=== PATIENT | female | born 1995 | race American Indian/Alaskan Native ===

== ENCOUNTER 2020-02-19 19:22 | Emergency (ER) | payer SELFPAY ==
--- NOTE | 2020-02-19 19:47 | Emergency Department Report ---
Blank Doc - Documentation Documentation: 24-year-old female that presents with abdominal pain with headache. This initial assessment/diagnostic orders/clinical plan/treatment(s) is/are subject to change based on patient's health status, clinical progression and re- assessment by fellow clinical providers in the ED. Further treatment and workup at subsequent clinical providers discretion. Patient/guardians urged not to elope from the ED as their condition may be serious if not clinically assessed and managed. Initial orders include: 1- Patient sent to [facility] for further evaluation and treatment 2- labs 3- UA
[2020-02-19 19:53] VITALS: BP 134/88
[2020-02-19 20:09] LABS: Basophils % (Auto) 0.6 % (0.0-1.8); Eosinophils # (Auto) 0.1 K/mm3 (0.0-0.4); Eosinophils % (Auto) 2.4 % (0.0-4.3); Hematocrit 26.5 % (30.3-42.9); Hemoglobin 8.1 gm/dl (10.1-14.3); Lymphocytes # (Auto) 1.9 K/mm3 (1.2-5.4); Lymphocytes % (Auto) 46.5 % (13.4-35.0); Mean Corpuscular HGB Conc 31 % (30-34); Monocytes # (Auto) 0.5 K/mm3 (0.0-0.8); Monocytes % (Auto) 11.8 % (0.0-7.3); Platelet Count 418 K/mm3 (140-440); Red Blood Count 4.43 M/mm3 (3.65-5.03); Red Cell Distribution Width 18.2 % (13.2-15.2)
[2020-02-19 20:14] LABS: Mean Corpuscular Volume 60 fl (79-97)
[2020-02-19 20:31] LABS: Alanine Aminotransferase 7 units/L (7-56); Albumin 4.6 g/dL (3.9-5); BUN/Creatinine Ratio 13; Blood Urea Nitrogen 12 mg/dL (7-17); Calcium 9.4 mg/dL (8.4-10.2); Hemolysis Index 2
[2020-02-19 22:53] LABS: Bilirubin,Urine NEG (Negative); Blood,Urine MOD (Negative); Color,Urine Yellow (Yellow); Mucus,Urine FEW /HPF; Protein,Urine <15 mg/dL mg/dL (Negative)
--- NOTE | 2020-02-20 00:11 | Emergency Department Report ---
ED General Adult HPI - General Chief complaint: Abdominal Pain Stated complaint: ABD PAIN, LIGHT HEADED Time Seen by Provider: 02/19/20 19:46 Source: patient Mode of arrival: Ambulatory Limitations: No Limitations - History of Present Illness Initial comments: This is a 24-year-old healthy female who presents the ED complaining of fever that occurred 2 days ago for 2 days and resolved today. Patient states that today she began to experience some mid abdominal pain. Patient states that she was in contact with her grandmother who is currently hospitalized at [facility] and has been tested positive for the cold with virus. Patient denies any shortness of breath, vomiting, nausea, coughing, chest pain, diarrhea or any other symptoms. - Related Data Allergies Allergy/AdvReac Type Severity Reaction Status Date / Time No Known Allergies Allergy Unverified 02/19/20 19:27 ED Review of Systems ROS: Stated complaint: ABD PAIN, LIGHT HEADED Other details as noted in HPI Comment: All other systems reviewed and negative ED Past Medical Hx - Past Medical History Previous Medical History?: No - Social History Smoking Status: Never Smoker Substance Use Type: None ED Physical Exam - General Limitations: No Limitations General appearance: alert, in no apparent distress - Head Head exam: Present: atraumatic, normocephalic - Eye Eye exam: Present: normal appearance - ENT ENT exam: Present: mucous membranes moist - Neck Neck exam: Present: normal inspection - Respiratory Respiratory exam: Present: normal lung sounds bilaterally. Absent: respiratory distress - Cardiovascular Cardiovascular Exam: Present: regular rate, normal rhythm. Absent: systolic murmur, diastolic murmur, rubs, gallop - GI/Abdominal GI/Abdominal exam: Present: soft, normal bowel sounds. Absent: distended, tenderness, mass - Extremities Exam Extremities exam: Present: normal inspection - Back Exam Back exam: Present: normal inspection - Neurological Exam Neurological exam: Present: alert, oriented X3 - Psychiatric Psychiatric exam: Present: normal affect, normal mood - Skin Skin exam: Present: warm, dry, intact, normal color. Absent: rash ED Course Vital Signs 02/19/20 02/20/20 19:47 00:15 Temperature 99.4 F Pulse Rate 79 76 Respiratory 16 16 Rate Blood Pressure 134/88 O2 Sat by Pulse 100 100 Oximetry ED Medical Decision Making - Lab Data Result diagrams: 02/19/20 19:58 02/19/20 19:58 Laboratory Last Values WBC 4.0 K/mm3 (4.5-11.0) L 02/19/20 19:58 RBC 4.43 M/mm3 (3.65-5.03) 02/19/20 19:58 Hgb 8.1 gm/dl (10.1-14.3) L 02/19/20 19:58 Hct 26.5 % (30.3-42.9) L 02/19/20 19:58 MCV 60 fl (79-97) L 02/19/20 19:58 MCH 18 pg (28-32) L 02/19/20 19:58 MCHC 31 % (30-34) 02/19/20 19:58 RDW 18.2 % (13.2-15.2) H 02/19/20 19:58 Plt Count 418 K/mm3 (140-440) 02/19/20 19:58 Lymph % (Auto) 46.5 % (13.4-35.0) H 02/19/20 19:58 [place] % (Auto) 11.8 % (0.0-7.3) H 02/19/20 19:58 Eos % (Auto) 2.4 % (0.0-4.3) 02/19/20 19:58 Baso % (Auto) 0.6 % (0.0-1.8) 02/19/20 19:58 Lymph # 1.9 K/mm3 (1.2-5.4) 02/19/20 19:58 [place] # 0.5 K/mm3 (0.0-0.8) 02/19/20 19:58 Eos # 0.1 K/mm3 (0.0-0.4) 02/19/20 19:58 Baso # 0.0 K/mm3 (0.0-0.1) 02/19/20 19:58 Seg Neutrophils % 38.7 % (40.0-70.0) L 02/19/20 19:58 Seg Neutrophils # 1.6 K/mm3 (1.8-7.7) L 02/19/20 19:58 Sodium 137 mmol/L (137-145) 02/19/20 19:58 Potassium 3.9 mmol/L (3.6-5.0) 02/19/20 19:58 Chloride 100.5 mmol/L (98-107) 02/19/20 19:58 Carbon Dioxide 23 mmol/L (22-30) 02/19/20 19:58 Anion Gap 17 mmol/L 02/19/20 19:58 BUN 12 mg/dL (7-17) 02/19/20 19:58 Creatinine 0.9 mg/dL (0.7-1.2) 02/19/20 19:58 Estimated GFR > 60 ml/min 02/19/20 19:58 BUN/Creatinine Ratio 13 % 02/19/20 19:58 Glucose 99 mg/dL (65-100) 02/19/20 19:58 Calcium 9.4 mg/dL (8.4-10.2) 02/19/20 19:58 Total Bilirubin 0.30 mg/dL (0.1-1.2) 02/19/20 19:58 AST 18 units/L (5-40) 02/19/20 19:58 ALT 7 units/L (7-56) 02/19/20 19:58 Alkaline Phosphatase 56 units/L (35-129) 02/19/20 19:58 Total Protein 8.7 g/dL (6.3-8.2) H 02/19/20 19:58 Albumin 4.6 g/dL (3.9-5) 02/19/20 19:58 Albumin/Globulin Ratio 1.1 % 02/19/20 19:58 Lipase 16 units/L (13-60) 02/19/20 19:58 HCG, Qual Negative (Negative) 02/19/20 19:58 Urine Color Yellow (Yellow) 02/19/20 22:22 Urine Turbidity Clear (Clear) 02/19/20 22:22 Urine pH 5.0 (5.0-7.0) 02/19/20 22:22 Ur Specific [place] 1.030 (1.003-1.030) 02/19/20 22:22 Urine Protein <15 mg/dl mg/dL (Negative) 02/19/20 22:22 Urine Glucose (UA) Neg mg/dL (Negative) 02/19/20 22:22 Urine Ketones Neg mg/dL (Negative) 02/19/20 22:22 Urine Blood Mod (Negative) 02/19/20 22:22 Urine Nitrite Neg (Negative) 02/19/20 22:22 Urine Bilirubin Neg (Negative) 02/19/20 22:22 Urine Urobilinogen 2.0 mg/dL (<2.0) 02/19/20 22:22 Ur Leukocyte Esterase Neg (Negative) 02/19/20 22:22 Urine WBC (Auto) 2.0 /HPF (0.0-6.0) 02/19/20 22:22 Urine RBC (Auto) 99.0 /HPF (0.0-6.0) 02/19/20 22:22 U Epithel Cells (Auto) 1.0 /HPF (0-13.0) 02/19/20 22:22 Urine Mucus Few /HPF 02/19/20 22:22 - Medical Decision Making 24-year-old female presents with abdominal pain. [place] for,of under investigation form was completed Patient's vital signs were normal in the ED. Patient had no significant or respiratory distress. Patient had no comorbidities and is at a low risk. At this time patient is to go home and self quarantine for the next 14 days. Discussed with patient that [facility] may contact her for home testing. Patient understands instructions and will follow-up. Critical care attestation.: If time is entered above; I have spent that time in minutes in the direct care of this critically ill patient, excluding procedure time. ED Disposition Clinical Impression: Abdominal pain Disposition: -01 TO HOME OR SELFCARE Is pt being admited?: No Does the pt Need Aspirin: No Condition: Stable Instructions: Abdominal Pain (ED) Additional Instructions: Make sure to follow up with the primary care physician as discussed. Take Tylenol or Motrin as needed for pain, and fever. She can take [id number] medications for symptoms such as coughing. You have been placed on a person under investigation list which means the [facility] may contact you and come to your home to test you. Make sure you stay in your home in quarantine for the next 2 weeks If you have any worsening symptoms or develop new symptoms please return to ED immediately. Referrals: PRIMARY CARE, [Primary Care Provider] - 3-5 Days [facility] [Outside] - 3-5 Days [facility] [Outside] - 3-5 Days Forms: Accompanied Note, Work/School Release Form(ED) Time of Disposition: 00:09
== END 2020-02-20 00:15 | disposition home or self-care (01) ==
LOC: ED 19:22
DX: R10.9 Unspecified abdominal pain (principal); R42 Dizziness and giddiness; R50.9 Fever, unspecified
CPT/HCPCS: 36415; 80053; 81001; 83690; 84703; 85025; 99283